=== PATIENT | male | born 1985 | race Two or more races ===

== ENCOUNTER 2024-11-13 06:09 | Emergency (ER) | payer SELFPAY ==
[2024-11-13 06:10] VITALS: BMI 23.2
[2024-11-13 06:13] VITALS: BP 145/92; PULSE 109; RESP 14; TEMP 37; O2SAT 99
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
[2024-11-13] MEDS: ACETAMINOPHEN 325 MG TABLET 650 MG PO (06:35)
[2024-11-13] MEDS: DIPHTH,PERTUSS(ACELL),TET VAC 0.5 ML SYR- ADULT IMi (06:36)
[2024-11-13] MEDS: THIAMINE 100 MG TABLET PO (06:47)
[2024-11-13] MEDS: FOLIC ACID 1 MG TABLET PO (06:47)
[2024-11-13 07:27] VITALS: BP 160/94; PULSE 92; RESP 88; TEMP 37.3; O2SAT 98
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
[2024-11-13] MEDS: RINGERS LACTATED 1000 ML 1,000 ML 999 ML IV (08:13)
[2024-11-13 09:45] VITALS: BP 152/94; PULSE 95; RESP 16; TEMP 36.7; O2SAT 95
== END 2024-11-13 09:47 ==
PROVIDERS: Emergency Provider Emergency Medicine
DX: Z02.89 Encounter for other administrative examinations (principal); S22.32XA Fracture of one rib, left side, initial encounter for closed fracture; T65.893A Toxic effect of other specified substances, assault, initial encounter; R51.9 Headache, unspecified; M54.2 Cervicalgia; M79.651 Pain in right thigh; R10.2 Pelvic and perineal pain; Y35.813A Legal intervention involving manhandling, suspect injured, initial encounter; Y35.893A Legal intervention involving other specified means, suspect injured, initial encounter; Z23 Encounter for immunization
CPT/HCPCS: 70450; 71101; 72125; 72170; 73552; 90471; 90715; 99284; J7120; A9270